=== PATIENT | female | born 1955 | race Caucasian/White ===

== ENCOUNTER → 2016-08-02 | Outpatient (CLI) | payer BC ==
[~2016-08-02] MED LIST: MULT-506 PO; PSYL58.618 PO
--- NOTE | 2016-08-02 15:54 | DIAGNOSTIC IMAGING REPORT ---
LEFT RIBS UNILATERAL WITH PA CHEST CLINICAL HISTORY: LEFT CHEST WALL PAIN pain COMPARISON STUDY: None FINDINGS: Negative left ribs. Cortical margins are intact. Negative PA film of the chest. IMPRESSION: Negative study Electronically signed by: Antonino Leger M.D. 08/02/2016 3:52 PM Dictated Date/Time: 08/02/2016 3:50 PM
== END | disposition home or self-care (01) ==
LOC: C.RADBC 15:26
PROVIDERS: ATTEND Physician Assistant
DX: R07.89 Other chest pain (principal)